=== PATIENT | male | born 1955 | race Asian ===

== ENCOUNTER → 2016-12-15 | Outpatient (CLI) | payer OTHER | END | disposition home or self-care (01) | LOC: RADPV 09:40 | PROVIDERS: ATTEND Internal Medicine Nephrology | DX: N18.9 Chronic kidney disease, unspecified (principal); N40.0 Benign prostatic hyperplasia without lower urinary tract symptoms; N28.1 Cyst of kidney, acquired; N50.819 Testicular pain, unspecified | CPT/HCPCS: 76770; 76870 ==

== ENCOUNTER → 2017-12-10 | Outpatient (CLI) | payer OTHER | END | disposition home or self-care (01) | LOC: RADPV 08:18 | PROVIDERS: ATTEND Internal Medicine Nephrology | DX: N40.0 Benign prostatic hyperplasia without lower urinary tract symptoms (principal); N28.1 Cyst of kidney, acquired; N18.9 Chronic kidney disease, unspecified | CPT/HCPCS: 76770 ==